=== PATIENT | male | born 1965 | race Caucasian/White ===

== ENCOUNTER 2017-01-13 09:41 | Observation (INO) | payer OTHER ==
--- NOTE | 2017-01-13 09:47 | ER Document Report ---
ED General - General Chief Complaint: Chest Pain > 30 Stated Complaint: CHEST PAIN Time Seen by Provider: 01/13/17 09:46 Notes: Of note, the patient was admitted for chest pain in September 2014. At that time he underwent a normal nuclear stress test. TRAVEL OUTSIDE OF THE [place] IN LAST 30 DAYS: No - Related Data Allergies/Adverse Reactions: No Known Allergies Allergy (Unverified 09/13/14 08:12) Past Medical History - Social History Smoking Status: Current Every Day Smoker Smoking Education Provided: Yes - The patient ED visit today was directly related to their abuse of tobacco. Family History: CAD - Past Medical History Cardiac Medical History: Denies: Hx Coronary Artery Disease, Hx Heart Attack, Hx Hypertension Pulmonary Medical History: Denies: Hx Asthma, Hx Bronchitis, Hx COPD, Hx Pneumonia Neurological Medical History: Denies: Hx Cerebrovascular Accident Musculoskeltal Medical History: Reports Hx Arthritis - Immunizations Hx Diphtheria, Pertussis, Tetanus Vaccination: Yes Physical Exam - Vital signs Vitals: Resp BP Pulse Ox 10 L 163/89 H 99 01/13/17 09:56 01/13/17 09:56 01/13/17 09:56 Course - Vital Signs Vital signs: Temp Pulse Resp BP Pulse Ox 97.8 F 12 138/89 H 100 01/13/17 10:00 01/13/17 11:01 01/13/17 11:01 01/13/17 11:01 - Laboratory Result Diagrams: 01/13/17 09:51 01/13/17 09:51 Laboratory results interpreted by me: 01/13/17 09:51 MCH 33.8 H MCHC 36.1 H Discharge - Discharge Clinical Impression: Chest pain Condition: Good Disposition: ADMITTED OBSERVATION
--- NOTE | 2017-01-13 09:53 | ER Document Report ---
ED General - General Chief Complaint: Chest Pain > 30 Stated Complaint: CHEST PAIN Time Seen by Provider: 01/13/17 09:46 Notes: 51-year-old male presents with chest pain. Began last night left-sided pressure -like intermittently. He went to bed after about 4 hours of intermittent chest pain. He woke up this morning at 5:00 AM and the pain was there again, mild, but it worsened acutely when he got to his job site and began walking around. He describes it as like a 5 gallon bucket on his chest, nonradiating with some nausea and shortness of breath. The pain lasted 20 minutes until EMS arrived at which point they gave him nitroglycerin spray, the pain then resolved completely. No pain currently. Chronic low back pain unchanged today. No ripping or tearing no radiation. Patient is a [id number] history of smoking. No family history. Was seen here 2 years and 4 months ago for chest pain. Cardiolite negative. TRAVEL OUTSIDE OF THE [place] IN LAST 30 DAYS: No - Related Data Allergies/Adverse Reactions: No Known Allergies Allergy (Unverified 09/13/14 08:12) Past Medical History - Social History Smoking Status: Current Every Day Smoker Smoking Education Provided: Yes - The patient ED visit today was directly related to their abuse of tobacco. Family History: CAD - Past Medical History Cardiac Medical History: Denies: Hx Coronary Artery Disease, Hx Heart Attack, Hx Hypertension Pulmonary Medical History: Denies: Hx Asthma, Hx Bronchitis, Hx COPD, Hx Pneumonia Neurological Medical History: Denies: Hx Cerebrovascular Accident Musculoskeltal Medical History: Reports Hx Arthritis - Immunizations Hx Diphtheria, Pertussis, Tetanus Vaccination: Yes Review of Systems - Review of Systems Notes: REVIEW OF SYSTEMS GEN: Denies fever, chills, weight loss ENT: Denies sore throat, nasal discharge, ear pain EYES: Denies blurry vision, eye pain, discharge CV: Chest pain resolved RESP: Shortness of breath resolved GI: Denies abdominal pain, vomiting, diarrhea MSK: Denies joint pain/swelling, edema, SKIN: Denies rash, skin lesions LYMPH: Denies swollen glands/lymph nodes NEURO: Denies headache, focal weakness or numbness, dizziness PSYCH: Denies depression, suicidal or homicidal ideation PHYSICAL EXAMINATION General: No acute distress, well-nourished Head: Atraumatic, normocephalic ENT: Mouth normal, oropharynx moist, no exudates or tonsillar enlargement Eyes: Conjunctiva normal, pupils equal, lids normal Neck: No JVD, supple, no guarding CVS: Normal rate, regular rhythm, no murmurs Resp: No resp distress, equal and normal breath sounds bilaterally GI: Nondistended, soft, no tenderness to palpation, no rebound or guarding Ext: No deformities, no edema, normal range of motion in upper and lower ext. Normal bilateral radial pulses. Back: No CVA or midline TTP Skin: No rash, warm Lymphatic: No lymphadeopathy noted Neuro: Awake, alert. Face symmetric. GCS 15. Physical Exam - Vital signs Vitals: Resp BP Pulse Ox 10 L 163/89 H 99 01/13/17 09:56 01/13/17 09:56 01/13/17 09:56 Course - Re-evaluation Re-evalutation: 01/13/17 09:52 51-year-old male presents with typical sounding chest pain now resolved after nitroglycerin. His last stress test was 2 years and 4 months ago. 01/13/17 11:30 Pain-free in the ED. Heart score is 5. Troponin negative chest x-ray negative. Admitted to hospitalist. - Vital Signs Vital signs: Temp Pulse Resp BP Pulse Ox 97.8 F 12 138/89 H 100 01/13/17 10:00 01/13/17 11:01 01/13/17 11:01 01/13/17 11:01 - Laboratory Result Diagrams: 01/13/17 09:51 01/13/17 09:51 Laboratory results interpreted by me: 01/13/17 09:51 MCH 33.8 H MCHC 36.1 H - Diagnostic Test Radiology reviewed: Image reviewed, Reports reviewed Discharge - Discharge Clinical Impression: Chest pain Qualifiers: Chest pain type: unspecified Qualified Code(s): R07.9 - Chest pain, unspecified Condition: Good Disposition: ADMITTED OBSERVATION Admitting Provider: Hospitalist Unit Admitted: Telemetry
[2017-01-13 10:15] LABS: ABSOLUTE LYMPHOCYTES (AUTO) 1.2 10^3/uL (0.5-4.7); ABSOLUTE MONOCYTES (AUTO) 0.7 10^3/uL (0.1-1.4); ABSOLUTE NEUT (AUTO) 3.8 10^3/uL (1.7-8.2); BASOPHILS % (AUTO) 0.3 % (0-2); EOSINOPHILS % (AUTO) 0.4 % (0-6); HEMATOCRIT 46.7 % (37.9-51.0); HEMOGLOBIN 16.8 g/dL (13.5-17.0); HGB HCT DIFFERENCE 3.7; LYMPHOCYTES % (AUTO) 21.6 % (13-45); MEAN CORPUSCULAR HEMOGLOBIN 33.8 pg (27.0-33.4); MEAN CORPUSCULAR HGB CONC 36.1 g/dL (32.0-36.0); MEAN CORPUSCULAR VOLUME 94 fl (80-97); MONOCYTES % (AUTO) 12.5 % (3-13); RED BLOOD COUNT 4.99 10^6/uL (4.35-5.55); RED CELL DISTRIBUTION WIDTH 12.8 % (11.5-14.0); SEGMENTED NEUTROPHILS % (AUTO) 65.2 % (42-78); WHITE BLOOD COUNT 5.8 10^3/uL (4.0-10.5)
--- NOTE | 2017-01-13 10:19 | RADIOLOGY REPORT (SQ) ---
EXAM DESCRIPTION: CHEST SINGLE VIEW COMPLETED DATE/TIME: 01/13/2017 10:10 am REASON FOR STUDY: cp COMPARISON: 09/13/2014. EXAM PARAMETERS: NUMBER OF VIEWS: One view. TECHNIQUE: Single frontal radiographic view of the chest acquired. RADIATION DOSE: NA LIMITATIONS: None. FINDINGS: LUNGS AND PLEURA: No opacities, masses or pneumothorax. No pleural effusion. MEDIASTINUM AND HILAR STRUCTURES: No masses. Contour normal. HEART AND VASCULAR STRUCTURES: Heart normal in size. Normal vasculature. BONES: No acute findings. HARDWARE: None in the chest. OTHER: No other significant finding. IMPRESSION: NO ACUTE RADIOGRAPHIC FINDING IN THE CHEST. TECHNICAL DOCUMENTATION: JOB ID: [id number] [employer]- All Rights Reserved
[2017-01-13 10:35] LABS: ANION GAP 11 (5-19); BLOOD UREA NITROGEN 10 mg/dL (7-20); CALCIUM 9.9 mg/dL (8.4-10.2); CARBON DIOXIDE 24 mmol/L (22-30); CHLORIDE 103 mmol/L (98-107); CREATININE RESULT 0.71 mg/dL (0.52-1.25); GLUCOSE 104 mg/dL (75-110); POTASSIUM 4.3 mmol/L (3.6-5.0); SODIUM 137.8 mmol/L (137-145)
[2017-01-13] MEDS ORDERED: IBUPROFEN 400 MG TABLET PO ONE (11:12)
[2017-01-13] MEDS ORDERED: ONDANSETRON HCL INJ/PF 4 MG/2 ML SDV IV PRN (11:38)
[2017-01-13] MEDS ORDERED: ACETAMINOPHEN 325 MG TABLET PO PRN (11:38)
[2017-01-13] MEDS ORDERED: OXYCODONE-ACETAMINOPHEN 5-325 MG TABLET PO PRN (11:38)
[2017-01-13] MEDS ORDERED: ZOLPIDEM TARTRATE 5 MG TABLET PO PRN (11:38)
--- NOTE | 2017-01-13 11:55 | EKG REPORT ---
SEVERITY:- NORMAL ECG - SINUS RHYTHM : Confirmed by: Samson Phillips 13-Jan-2017 11:53:59
[2017-01-13] MEDS ORDERED: THIAMINE HCL 100 MG TABLET PO ONE (13:00)
[2017-01-13] MEDS ORDERED: ASPIRIN 81 MG TABLET, CHEWABLE PO ONE (13:00)
[2017-01-13] MEDS ORDERED: MULTIVITAMIN TABLET PO ONE (13:00)
[2017-01-13] MEDS: IPRATROPIUM/ALBUTEROL 0.5-2.5 MG/3 ML AMPUL NEB SCH ×2 (14:10→20:08)
[2017-01-13] MEDS ORDERED: TIZANIDINE HCL 4 MG TABLET PO ONE (16:00)
[2017-01-13] MEDS ORDERED: ALPRAZOLAM 0.5 MG TABLET PO ONE (16:00)
[2017-01-13] MEDS ORDERED: NICOTINE 21 MG/24 HR PATCH.TD24 TD ONE (16:00)
[2017-01-13] MEDS ORDERED: NITROGLYCERIN 0.4 MG/TAB 25 TAB/BOTTLE SL PRN (16:53)
--- NOTE | 2017-01-13 16:55 | PDOC H&P ---
History of Present Illness Admission Date/PCP: 01/13/17 11:46 Patient complains of: Chest pain across chest wall since this morning History of Present Illness: CHANTELLE IGNACIO is a 51 year old maleArrived to ED via EMS complaining of pain across chest wall which is worse upon movement and when taking a deep breath. Pain may come and go. He woke up with the pain and went to an EMS service unit. Due to presentation he was encouraged to come to emergency room. Accordingly pain improved after was given a nitro sublingual however it comes and goes. He admits that he presented to this facility 2 years ago because of chest pain and had a stress test done which was negative. Patient states that he continues smoking 1 pack of cigarettes per day. He also continues drinking around 3-4 beers a day. 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 Due to co morbidities our service was contacted and prompted to admit to further evaluate. Past Medical History Cardiac Medical History: Reports: Hyperlipidema Denies: Coronary Artery Disease, Myocardial Infarction, Hypertension Pulmonary Medical History: Denies: Asthma, Bronchitis, Chronic Obstructive Pulmonary Disease (COPD), Pneumonia EENT Medical History: Reports: None Neurological Medical History: Reports: None Endocrine Medical History: Reports: None Renal/ Medical History: Reports: None Malignancy Medical History: Reports: None GI Medical History: Reports: None Musculoskeltal Medical History: Reports: Arthritis Musculoskeletal History Note: Back pain Psychiatric Medical History: Reports: Alcohol Dependency, Tobacco Dependency Traumatic Medical History: Reports: None Hematology: Denies: Anemia Infectious Medical History: Reports: None Past Surgical History Past Surgical History: Reports: None Social History Smoking Status: Current Every Day Smoker Cigarettes Packs Per Day: 1 Pipes Per Day: 22 Frequency of Alcohol Use: Heavy Last Alcohol Use: 01/12/17 Hx Recreational Drug Use: No Drugs: None Hx Prescription Drug Abuse: No - Advance Directive Resuscitation Status: Full Code Family History Family History: CAD Parental Family History Reviewed: Yes Children Family History Reviewed: Yes Sibling(s) Family History Reviewed.: Yes Medication/Allergy Home Medications: Gabapentin [Neurontin 300 mg Capsule] 300 mg PO Q8 01/13/17 Tramadol HCl [Ultram 50 mg Tablet] 50 mg PO Q12HP PRN 01/13/17 Allergies/Adverse Reactions: No Known Allergies Allergy (Unverified 09/13/14 08:12) Physical Exam Vital Signs: Temp Pulse Resp BP Pulse Ox 97.8 F 89 16 143/85 H 96 01/13/17 10:00 01/13/17 14:10 01/13/17 14:10 01/13/17 14:00 01/13/17 14:10 Intake & Output 01/12/17 01/13/17 01/14/17 06:59 06:59 06:59 Output Total 700 Balance -700 General appearance: PRESENT: no acute distress, cooperative, well-developed, well-nourished Head exam: PRESENT: atraumatic, normocephalic Eye exam: PRESENT: conjunctiva pink, EOMI, PERRLA Ear exam: PRESENT: normal external ear exam Mouth exam: PRESENT: moist, neck supple Neck exam: PRESENT: full ROM. ABSENT: JVD, lymphadenopathy, tenderness, thyromegaly Respiratory exam: PRESENT: clear to auscultation destinee Cardiovascular exam: PRESENT: RRR. ABSENT: diastolic murmur, gallop, systolic murmur GI/Abdominal exam: PRESENT: normal bowel sounds, soft. ABSENT: distended, guarding, tenderness Rectal exam: PRESENT: deferred Extremities exam: PRESENT: full ROM. ABSENT: joint swelling, pedal edema Musculoskeletal exam: PRESENT: ambulatory, full ROM, normal inspection Neurological exam: PRESENT: alert, oriented to person, oriented to place, oriented to time Psychiatric exam: PRESENT: anxious Skin exam: PRESENT: normal color Results Impressions: Chest X-Ray 01/13/17 09:46 IMPRESSION: NO ACUTE RADIOGRAPHIC FINDING IN THE CHEST. Assessment & Plan - Diagnosis (1) Chest pain Qualifiers: Chest pain type: unspecified Qualified Code(s): R07.9 - Chest pain, unspecified Is this a current diagnosis for this admission?: Yes Plan: Due to comorbidities patient will be admitted under observation although description of pain points more toward her musculoskeletal. Troponin will be trended. Will be placed in telemetry. If troponin continues negative we will order a nuclear stress test. Patient will be placed on enteric-coated aspirin 81 mg 1 p.o. daily Lipitor 80 mg p.o. daily (2) Alcohol abuse Is this a current diagnosis for this admission?: Yes Plan: Patient has been encouraged to quit. (3) Chronic back pain Qualifiers: Back pain location: low back pain Back pain laterality: bilateral Sciatica presence: without sciatica Qualified Code(s): M54.5 - Low back pain; G89.29 - Other chronic pain; G89.29 - Other chronic pain Is this a current diagnosis for this admission?: Yes Plan: Will add muscle relaxer to his outpatient regimen (4) Dyslipidemia Is this a current diagnosis for this admission?: Yes Plan: Patient had elevated cholesterol 2 years ago and he has not done any lifestyle modifications and continues smoking. He will be placed on Lipitor (5) Tobacco abuse Is this a current diagnosis for this admission?: Yes Plan: Patient educated about quitting smoking. Will be placed on nicotine patch - Time Time Spent: 30 to 50 Minutes Smoking Cessation Education: 3 to 10 minutes Medications reviewed and adjusted accordingly: Yes Anticipated discharge: Home - Inpatient Certification Based on my medical assessment, after consideration of the patient's comorbidities, presenting symptoms, or acuity I expect that the services needed warrant INPATIENT care.: No I certify that my determination is in accordance with my understanding of Medicare's requirements for reasonable and necessary INPATIENT services [42 CFR 412.3e].: Yes Medical Necessity: Significant Comorbidiites Make Outpatient Treatment Too Risky
[2017-01-13] MEDS: LANSOPRAZOLE 30 MG TAB.RAP.DR PO SCH (17:42)
[2017-01-13] MEDS ORDERED: ASPIRIN 81 MG TABLET, CHEWABLE ONE (20:59)
[2017-01-13] MEDS ORDERED: IBUPROFEN 800 MG TABLET ONE (21:04)
[2017-01-13] MEDS: GABAPENTIN 300 MG CAPSULE PO SCH (22:45)
[2017-01-14] MEDS: TIZANIDINE HCL 4 MG TABLET PO SCH ×2 (03:57→06:15)
[2017-01-14] MEDS: LANSOPRAZOLE 30 MG TAB.RAP.DR PO SCH (06:15)
[2017-01-14] MEDS: GABAPENTIN 300 MG CAPSULE PO SCH (06:15)
[2017-01-14 07:09] LABS: ABSOLUTE EOSINOPHILS # (AUTO) 0.1 10^3/uL (0.0-0.6); ABSOLUTE LYMPHOCYTES (AUTO) 1.9 10^3/uL (0.5-4.7); ABSOLUTE MONOCYTES (AUTO) 0.7 10^3/uL (0.1-1.4); ABSOLUTE NEUT (AUTO) 3.5 10^3/uL (1.7-8.2); BASOPHILS % (AUTO) 0.2 % (0-2); EOSINOPHILS % (AUTO) 1.5 % (0-6); HEMATOCRIT 44.9 % (37.9-51.0); HGB HCT DIFFERENCE 3.1; LYMPHOCYTES % (AUTO) 30.8 % (13-45); MEAN CORPUSCULAR HEMOGLOBIN 33.5 pg (27.0-33.4); MEAN CORPUSCULAR HGB CONC 35.7 g/dL (32.0-36.0); MEAN CORPUSCULAR VOLUME 94 fl (80-97); MONOCYTES % (AUTO) 11.1 % (3-13); RED BLOOD COUNT 4.78 10^6/uL (4.35-5.55); RED CELL DISTRIBUTION WIDTH 12.6 % (11.5-14.0); SEGMENTED NEUTROPHILS % (AUTO) 56.4 % (42-78); WHITE BLOOD COUNT 6.3 10^3/uL (4.0-10.5)
[2017-01-14 07:28] LABS: ANION GAP 12 (5-19); BLOOD UREA NITROGEN 11 mg/dL (7-20); CALCIUM 9.7 mg/dL (8.4-10.2); CARBON DIOXIDE 26 mmol/L (22-30); CHLORIDE 103 mmol/L (98-107); CREATININE RESULT 0.76 mg/dL (0.52-1.25); GLUCOSE 83 mg/dL (75-110); MAGNESIUM 1.8 mg/dL (1.6-2.3); POTASSIUM 4.4 mmol/L (3.6-5.0); SODIUM 140.9 mmol/L (137-145)
[2017-01-14 08:24] VITALS: BP 119/84
[2017-01-14] MEDS: IPRATROPIUM/ALBUTEROL 0.5-2.5 MG/3 ML AMPUL NEB SCH (08:35)
[2017-01-14] MEDS ORDERED: ALPRAZOLAM 0.5 MG TABLET PO ONE (10:00)
[2017-01-14] MEDS ORDERED: THIAMINE HCL 100 MG TABLET PO SCH (10:00)
[2017-01-14] MEDS ORDERED: NICOTINE 21 MG/24 HR PATCH.TD24 TD SCH (10:00)
[2017-01-14] MEDS ORDERED: ENOXAPARIN SODIUM INJ 40 MG/0.4 ML DISP.SYRIN SUBCUT SCH (10:00)
--- NOTE | 2017-01-15 06:16 | PDOC DISCHARGE SUMMARY ---
General - Admit/Disc Date/PCP Admission Date/Primary Care Provider: 01/13/17 11:46 Discharge Date: 01/14/17 - Discharge Diagnosis (1) Chest pain Is this a current diagnosis for this admission?: Yes (2) Alcohol abuse Is this a current diagnosis for this admission?: Yes (3) Chronic back pain Is this a current diagnosis for this admission?: Yes (4) Dyslipidemia Is this a current diagnosis for this admission?: Yes (5) Tobacco abuse Is this a current diagnosis for this admission?: Yes - Additional Information Resuscitation Status: Full Code Discharge Diet: Cardiac Discharge Activity: Activity As Tolerated Home Medications: Gabapentin [Neurontin 300 mg Capsule] 300 mg PO Q8 01/13/17 Tramadol HCl [Ultram 50 mg Tablet] 50 mg PO Q12HP PRN 01/13/17 Atorvastatin Calcium [Lipitor 40 mg Tablet] 40 mg PO QHS #30 tablet 01/14/17 Thiamine HCl [Thiamine 100 mg Tablet] 100 mg PO DAILY #100 tablet 01/14/17 Tizanidine HCl [Zanaflex 4 mg Tablet] 4 mg PO Q8 #90 tablet 01/14/17 History of Present Illness History of Present Illness: CHANTELLE IGNACIO is a 51 year old maleArrived to ED via EMS complaining of pain across chest wall which is worse upon movement and when taking a deep breath. Pain would come and go. He woke up with the pain and went to an EMS service unit. Due to presentation he was encouraged to come to emergency room. Accordingly pain improved after was given a nitro sublingual however it comes and goes. He admits that he presented to this facility 2 years ago because of chest pain and had a stress test done which was negative. Patient states that he continues smoking 1 pack of cigarettes per day. He also continues drinking around 3-4 beers a day. 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 Due to co morbidities our service was contacted and prompted to admit to further evaluate. Hospital Course Hospital Course: Patient was admitted to telemetry unit. Troponin remained negative 3. There were no cardiac dysrhythmia. A nuclear stress test was requested however Dr. Everett recommended to discharge patient since EKG was normal and symptoms were consistent with musculoskeletal pain as it was aggravated upon movement. Dr. Everett provided he is still phone number to give to the patient for follow-up. Patient has been encouraged as to quit smoking, quit alcohol and to pursue lifestyle changes. We added muscle relaxer to his outpatient regimen and prescribed Lipitor Since patient had achieved maximum benefit of hospitalization stay prompted to discharge under stable condition Physical Exam Vital Signs: Temp Pulse Resp BP Pulse Ox 97.6 F 94 18 119/84 98 01/14/17 11:26 01/14/17 11:26 01/14/17 11:26 01/14/17 11:26 01/14/17 11:26 Intake & Output 01/13/17 01/14/17 01/15/17 06:59 06:59 06:59 Intake Total 243 Output Total 1300 Balance -1057 Weight 74 kg General appearance: PRESENT: no acute distress, cooperative, well-developed, well-nourished Head exam: PRESENT: atraumatic, normocephalic Eye exam: PRESENT: conjunctiva pink, EOMI, PERRLA Mouth exam: PRESENT: moist, neck supple Cardiovascular exam: PRESENT: RRR. ABSENT: diastolic murmur, systolic murmur Pulses: PRESENT: normal carotid pulses Vascular exam: PRESENT: normal capillary refill GI/Abdominal exam: PRESENT: normal bowel sounds, soft. ABSENT: tenderness Neurological exam: PRESENT: alert, altered, oriented to person, oriented to place, oriented to time, oriented to situation, CN II-XII grossly intact Psychiatric exam: PRESENT: anxious Skin exam: PRESENT: normal color Results Laboratory Results: 01/14/17 06:27 01/14/17 06:27 01/14/17 01/14/17 06:27 06:27 WBC 6.3 RBC 4.78 Hgb 16.0 Hct 44.9 MCV 94 MCH 33.5 H MCHC 35.7 RDW 12.6 Plt Count 244 Seg Neutrophils % 56.4 Lymphocytes % 30.8 Monocytes % 11.1 Eosinophils % 1.5 Basophils % 0.2 Absolute Neutrophils 3.5 Absolute Lymphocytes 1.9 Absolute Monocytes 0.7 Absolute Eosinophils 0.1 Absolute Basophils 0.0 Sodium 140.9 Potassium 4.4 Chloride 103 Carbon Dioxide 26 Anion Gap 12 BUN 11 Creatinine 0.76 Est GFR ( Amer) > 60 Est GFR (Non-Af Amer) > 60 Glucose 83 Calcium 9.7 Magnesium 1.8 01/13/17 01/13/17 15:50 22:50 Troponin I < 0.012 < 0.012 Impressions: Chest X-Ray 01/13/17 09:46 IMPRESSION: NO ACUTE RADIOGRAPHIC FINDING IN THE CHEST. Plan Discharge Plan: Discharge home. Patient was provided with Dr. Everett cell number for him to follow-up Time Spent: Less than 30 Minutes
== END 2017-01-14 13:03 | disposition home or self-care (01) ==
LOC: ER 09:41 → EH 11:46 → 4N 23:43
PROVIDERS: ADMIT Family Medicine; ATTEND Family Medicine
PROC: 3E0F7GC Introduction of Other Therapeutic Substance into Respiratory Tract, Via Natural or Artificial Opening (ICD-10-PCS; principal; 2017-01-13)
PROC: HZ31ZZZ Individual Counseling for Substance Abuse Treatment, Behavioral (ICD-10-PCS; 2017-01-13)
DX: R07.89 Other chest pain (principal); F10.10 Alcohol abuse, uncomplicated; G89.29 Other chronic pain; M54.5 Low back pain; E78.5 Hyperlipidemia, unspecified; F17.210 Nicotine dependence, cigarettes, uncomplicated; R11.0 Nausea; R06.02 Shortness of breath; M19.90 Unspecified osteoarthritis, unspecified site; Z79.899 Other long term (current) drug therapy; Z82.49 Family history of ischemic heart disease and other diseases of the circulatory system
CPT/HCPCS: 93005; 94640 ×5; 99285; 36415 ×2; 83690; 83735; 85025 ×2; 80048 ×2; 84484; 71010; 93010; 99406; J3490 ×2; J1650; J7620 ×2; G0378

== ENCOUNTER 2020-02-16 12:42 | Emergency (ER) | payer OTHER ==
--- NOTE | 2020-02-16 14:01 | ER Document Report ---
ED Medical Screen (RME) - General Chief Complaint: Black/Tarry Stools Stated Complaint: BLACK STOOL Time Seen by Provider: 02/16/20 13:55 Primary Care Provider: DARREL,NO [Primary Care Provider] - Follow up as needed Mode of Arrival: Ambulatory Information source: Patient Notes: HPI; 54-year-old male presents to the emergency room complaining of dark tarry stools for the past 2 days. Denies any nausea, vomiting. No prescribed blood thinners. States he does take 800 mg of ibuprofen nightly before bed for chronic pain. No history of previous GI bleeds. PE: Alert and oriented x3. Lungs: Clear to auscultation without rales, rhonchi, wheezes. Heart: Tachycardic without murmurs, rubs, gallops. I have greeted and performed a rapid initial assessment of this patient. A comprehensive ED assessment and evaluation of the patient, analysis of test results and completion of the medical decision making process will be conducted by additional ED providers. I have specifically instructed the patient or family members with the patient to immediately return to any nursing staff should anything change in the patient's condition or with their chief complaint. TRAVEL OUTSIDE OF THE [place] IN LAST 30 DAYS: No - Related Data Allergies/Adverse Reactions: No Known Allergies Allergy (Verified 02/16/20 13:48) Home Medications: gabapentin. tizanidine. lidocaine patch Past Medical History - Social History Frequency of alcohol use: Heavy - Past Medical History Cardiac Medical History: Reports: Hx Hypercholesterolemia Denies: Hx Coronary Artery Disease, Hx Heart Attack, Hx Hypertension Pulmonary Medical History: Denies: Hx Asthma, Hx Bronchitis, Hx COPD, Hx Pneumonia Neurological Medical History: Denies: Hx Cerebrovascular Accident Renal/ Medical History: Denies: Hx Peritoneal Dialysis Musculoskeltal Medical History: Reports Hx Arthritis - Immunizations Hx Diphtheria, Pertussis, Tetanus Vaccination: Yes Physical Exam - Vital signs Vitals: Temp Pulse Resp BP Pulse Ox 98.1 F 118 H 16 151/90 H 100 02/16/20 12:47 02/16/20 12:47 02/16/20 12:47 02/16/20 12:47 02/16/20 12:47 Course - Vital Signs Vital signs: Temp Pulse Resp BP Pulse Ox 98.1 F 118 H 16 151/90 H 100 02/16/20 12:47 02/16/20 12:47 02/16/20 12:47 02/16/20 12:47 02/16/20 12:47 Doctor's Discharge - Discharge Referrals: DARREL,NO [Primary Care Provider] - Follow up as needed
[2020-02-16 14:35] LABS: ABSOLUTE EOSINOPHILS # (AUTO) 0.1 10^3/uL (0.0-0.6); ABSOLUTE MONOCYTES (AUTO) 0.7 10^3/uL (0.1-1.4); ABSOLUTE NEUT (AUTO) 4.2 10^3/uL (1.7-8.2); BASOPHILS % (AUTO) 0.3 % (0-2); HEMATOCRIT 40.9 % (37.9-51.0); HEMOGLOBIN 14.3 g/dL (13.5-17.0); LYMPHOCYTES % (AUTO) 28.2 % (13-45); MEAN CORPUSCULAR HEMOGLOBIN 33.2 pg (27.0-33.4); MEAN CORPUSCULAR HGB CONC 34.9 g/dL (32.0-36.0); MEAN CORPUSCULAR VOLUME 95 fl (80-97); MONOCYTES % (AUTO) 10.3 % (3-13); PLATELET COUNT 265 10^3/uL (150-450); RED BLOOD COUNT 4.31 10^6/uL (4.35-5.55); RED CELL DISTRIBUTION WIDTH 12.6 % (11.5-14.0); SEGMENTED NEUTROPHILS % (AUTO) 60.2 % (42-78); TOTAL CELLS COUNTED % (AUTO) 100 %
[2020-02-16 14:53] LABS: ALBUMIN 4.5 g/dL (3.5-5.0); ALKALINE PHOSPHATASE 43 U/L (38-126); ANION GAP 9 (5-19); ASPARTATE AMINO TRANSFERASE 33 U/L (17-59); BILIRUBIN,DIRECT 0.3 mg/dL (0.0-0.4); BILIRUBIN,TOTAL 0.6 mg/dL (0.2-1.3); BLOOD UREA NITROGEN 15 mg/dL (7-20); CALCIUM 10.1 mg/dL (8.4-10.2); CARBON DIOXIDE 29 mmol/L (22-30); CHLORIDE 97 mmol/L (98-107); GLUCOSE 103 mg/dL (75-110); POTASSIUM 4.7 mmol/L (3.6-5.0); TOTAL PROTEIN 7.7 g/dL (6.3-8.2)
[2020-02-16] MEDS ORDERED: PANTOPRAZOLE SODIUM 40 MG TABLET.DR PO ONE (16:55)
--- NOTE | 2020-02-16 17:15 | ER Document Report ---
ED GI Bleed / Rectal Pain - General Chief Complaint: Black/Tarry Stools Stated Complaint: BLACK STOOL Time Seen by Provider: 02/16/20 13:55 Primary Care Provider: DENYS VALLEJO MD [ACTIVE STAFF] - Follow up as needed Mode of Arrival: Ambulatory Notes: CHIEF COMPLAINT: Dark tarry stools for 2 days HPI: 54-year-old male presenting for dark tarry stools over the last 2 days. Patient states 2 days ago he ate food that he thought might have not been cooked properly. States he had multiple episodes of diarrhea after this several of which were dark and tarry and blackish in color. Patient does not have any abdominal pain. No dizziness chest pain shortness of breath. States the color of the stool has slowly been improving from black to darker brown. Patient states he does take ibuprofen nightly for chronic pain issues. ROS: See HPI - all other systems were reviewed and are otherwise negative Constitutional: no fever Eyes: no drainage, no blurred vision ENT: no runny nose, no sore throat Cardiovascular: no chest pain Resp: no SOB, no cough GI: no vomiting, positive diarrhea, no abdominal pain. Positive black stool : no dysuria Integumentary: no rash Allergy: no hives Musculoskeletal: no extremity pain or swelling Neurological: no numbness/tingling, no weakness MEDICATIONS: I agree with the patient medications as charted by the RN. ALLERGIES: I agree with the allergies as charted by the RN. PAST MEDICAL HISTORY/PAST SURGICAL HISTORY: Reviewed and agree as charted by RN. SOCIAL HISTORY: Reviewed and agree as charted by RN. FAMILY HISTORY: No significant familial comorbid conditions directly related to patient complaint EXAM: Reviewed vital signs as charted by RN. CONSTITUTIONAL: Alert and oriented and responds appropriately to questions. Well-appearing; well-nourished HEAD: Normocephalic; atraumatic EYES: PERRL; Conjunctivae clear, sclerae non-icteric ENT: normal nose; no rhinorrhea; moist mucous membranes; pharynx without lesions noted, no uvula edema or deviation, no tonsillar hypertrophy, phonation normal NECK: Supple without meningismus; non-tender; no cervical lymphadenopathy, no masses CARD: RRR; no murmurs, no clicks, no rubs, no gallops; symmetric distal pulses RESP: Normal chest excursion without splinting or tachypnea; breath sounds clear and equal bilaterally; no wheezes, no rhonchi, no rales, pulse oximetry 98% on room air not hypoxic ABD/GI: Normal bowel sounds; non-distended; soft, absolutely no tenderness on palpation of the abdomen, no rebound, no guarding; no palpable organomegaly or masses. Rectal: Several small nonthrombosed external hemorrhoids are noted. Good rectal tone. No palpable masses. There is no dark tarry stool or ejro blood in the rectal vault. Hemoccult positive. BACK: The back appears normal and is non-tender to palpation, there is no CVA tenderness EXT: Normal ROM in all joints; non-tender to palpation; no cyanosis, no effusions, no edema SKIN: Normal color for age and race; warm; dry; good turgor; no acute lesions noted NEURO: Moves all extremities equally; Motor and sensory function intact PSYCH: The patient's mood and manner are appropriate. Grooming and personal hygiene are appropriate. MDM: 54-year-old male presenting for dark tarry stools for 2 days which he feels is improving. He has absolutely no abdominal pain. He is in no distress. He was heme positive on his rectal exam. I did recommend stopping ibuprofen, I will place him on Protonix. Will have nursing recheck vital signs. discussed with Dr. Cintron attending. TRAVEL OUTSIDE OF THE [place] IN LAST 30 DAYS: No - Related Data Allergies/Adverse Reactions: No Known Allergies Allergy (Verified 02/16/20 13:48) Home Medications: gabapentin. tizanidine. lidocaine patch Past Medical History - General Information source: Patient - Social History Smoking Status: Current Every Day Smoker Frequency of alcohol use: Heavy Family History: CAD - Past Medical History Cardiac Medical History: Reports: Hx Hypercholesterolemia Denies: Hx Coronary Artery Disease, Hx Heart Attack, Hx Hypertension Pulmonary Medical History: Denies: Hx Asthma, Hx Bronchitis, Hx COPD, Hx Pneumonia Neurological Medical History: Denies: Hx Cerebrovascular Accident Renal/ Medical History: Denies: Hx Peritoneal Dialysis Musculoskeletal Medical History: Reports Hx Arthritis - Immunizations Hx Diphtheria, Pertussis, Tetanus Vaccination: Yes Physical Exam - Vital signs Vitals: Temp Pulse Resp BP Pulse Ox 98.1 F 118 H 16 151/90 H 100 02/16/20 12:47 02/16/20 12:47 02/16/20 12:47 02/16/20 12:47 02/16/20 12:47 Course - Re-evaluation Re-evalutation: 02/16/20 17:51 Patient heart rate on recheck is 105. He is in no distress. Will discharge home to follow-up with gastroenterology. - Vital Signs Vital signs: Temp Pulse Resp BP Pulse Ox 98.8 F 102 H 16 131/97 H 100 02/16/20 17:38 02/16/20 17:38 02/16/20 17:38 02/16/20 17:38 02/16/20 12:47 - Laboratory Results Result Diagrams: 02/16/20 14:10 02/16/20 14:10 Laboratory Results Interpreted: 02/16/20 02/16/20 14:10 14:10 RBC 4.31 L Sodium 135.3 L Chloride 97 L Critical Laboratory Results Reviewed: No Critical Results - Radiology Results Critical Radiology Results Reviewed: No Critical Results Discharge - Discharge Clinical Impression: Heme positive stool Condition: Stable Disposition: HOME, SELF-CARE Additional Instructions: Stop ibuprofen. Start Protonix. Follow-up closely with gastroenterology for further evaluation and treatment call for appointment. Return to the emergency department if you develop any abdominal pain or have recurrence of the dark tarry stools Prescriptions: Pantoprazole Sodium [Protonix [address] Tablet] 20 mg PO DAILY #30 tablet. Referrals: DENYS VALLEJO MD [ACTIVE STAFF] - Follow up as needed
[2020-02-16 17:39] VITALS: BP 131/97
== END 2020-02-16 17:50 | disposition home or self-care (01) ==
LOC: ER 12:42
DX: R19.5 Other fecal abnormalities (principal); F17.200 Nicotine dependence, unspecified, uncomplicated; G89.29 Other chronic pain; Z79.1 Long term (current) use of non-steroidal anti-inflammatories (NSAID); Z79.899 Other long term (current) drug therapy
CPT/HCPCS: 99284; 36415; 83690; 85025; 82270; 80053; J3490